=== PATIENT | female | born 1970 | race Caucasian/White ===

== ENCOUNTER 2022-03-25 09:43 | Emergency (ER) | payer BC, OTHER ==
[2022-03-25] MEDS ORDERED: CEFTRIAXONE 1000 MG/VIAL ONE (10:39)
[2022-03-25] MEDS ORDERED: dexAMETHasone 10 MG/ML VIAL ONE (10:39)
[2022-03-25] MEDS ORDERED: HYDROCODONE/CHLORPHEN 5 ML/OSYR ONE (10:39)
--- NOTE | 2022-03-25 12:40 | EDPHYS ---
Physician Documentation [facility] Name: Jennie Longo Age: 51 yrs Sex: Female : 1970 Arrival Date: 03/25/2022 Time: 09:44 Bed 18 Private MD: ED Physician Baldev Rich HPI: 03/25 10:15 This 51 yrs old Female presents to ER via Ambulatory with complaints of Ear Pain, Chest pm1 Congestion, Sore Throat, Swelling Of Tongue, Neck Swelling. 10:15 The patient presents with sore throat, and sinus pain. Onset: The symptoms/episode pm1 began/occurred 2 week(s) ago. Severity of symptoms: in the emergency department the symptoms are actually worse. Modifying factors: The symptoms are alleviated by nothing, Patient's oral intake status: good unaware of sick contact. Associated signs and symptoms: Pertinent positives: Swollen lymph nodes to neck, left ear pain, chest congestion and cough with postnasal drainage, sinus tenderness, Pertinent negatives fever. The patient has experienced similar episodes in the past, a few times. The patient has not recently seen a physician. Historical: - Allergies: 10:21 No Known Allergies; aa5 - Home Meds: 10:21 lisinopril 20 mg oral tab once daily [Active]; BuSpar 30 mg oral tab daily [Active]; aa5 10:43 Xanax 0.5 mg Oral tab as needed [Active]; rainey - PMHx: 10:21 Anxiety; Depression; Hypertension; aa5 - Immunization history:: Adult Immunizations unknown. - Social history:: Smoking status: Patient reports the use of cigarette tobacco products. ROS: 10:26 Constitutional: Negative for fever, chills, and weight loss. pm1 10:26 Cardiovascular: Negative for chest pain, palpitations, and edema. 10:26 Back: Negative for injury and pain, MS/Extremity: Negative for injury and deformity, Skin: Negative for injury, rash, and discoloration, Neuro: Negative for headache, weakness, numbness, tingling, and seizure. 10:26 ENT: Positive for ear pain, rhinorrhea, sinus congestion, sinus pain, sore throat. 10:26 Neck: Positive for swollen nodes, of the neck. 10:26 Respiratory: Positive for cough. 10:26 All other systems are negative. Exam: 10:26 Constitutional: This is a well developed, well nourished patient who is awake, alert, pm1 and in no acute distress. Head/Face: Normocephalic, atraumatic. 10:26 Back: No spinal tenderness. No costovertebral tenderness. Full range of motion. Skin: Warm, dry with normal turgor. Normal color with no rashes, no lesions, and no evidence of cellulitis. MS/ Extremity: Pulses equal, no cyanosis. Neurovascular intact. Full, normal range of motion. 10:26 ENT: External ear(s): are unremarkable, Ear canal(s): are normal, TM's: are normal, Mouth: no acute changes, Lips: normal, moist, Oral mucosa: normal, pink and intact, moist, Tongue: is normal, Negative for trismus, Posterior pharynx: Tonsils: bilaterally enlarged, with erythema, no exudate, no ulcerations, peritonsillar mass, is not appreciated, Voice: is normal. 10:26 Neck: Lymph nodes: lymphadenopathy is appreciated, anterior cervical nodes. 10:26 Cardiovascular: Exam negative for acute changes, Rate: normal, Rhythm: regular, Pulses: no pulse deficits are appreciated, Heart sounds: normal, normal S1and S2. 10:26 Respiratory: Exam negative for acute changes, respiratory distress, shortness of breath, Breath sounds: are clear throughout. 10:26 Abdomen/GI: Exam negative for acute changes, Inspection: abdomen appears normal, Palpation: abdomen is soft and non-tender, in all quadrants. 10:26 Neuro: Exam negative for acute changes, Orientation: is normal, Mentation: is normal, Motor: is normal, moves all fours. Vital Signs: 09:58 BP 120 / 73; Pulse 116; Resp 18 S; Temp 98.7(TE); Pulse Ox 96% on R/A; Weight 74.84 kg aa5 (R); Height 5 ft. 5 in. (165.10 cm) (R); 09:58 Body Mass Index 27.46 (74.84 kg, 165.10 cm) aa5 MDM: 10:07 Patient medically screened. pm1 12:37 Data reviewed: vital signs. Data interpreted: Pulse oximetry: on room air is 96 %. pm1 Interpretation: normal. Counseling: I had a detailed discussion with the patient and/or guardian regarding: the historical points, exam findings, and any diagnostic results supporting the discharge/admit diagnosis, the need for outpatient follow up, to return to the emergency department if symptoms worsen or persist or if there are any questions or concerns that arise at home. Administered Medications: 10:43 Drug: Rocephin (cefTRIAXone) 1 grams Route: IM; Site: right gluteus; rainey 10:44 Follow up: Response: No adverse reaction rainey 10:43 Drug: Decadron (dexamethasone) 10 mg Route: IM; Site: left gluteus; rainey 10:44 Follow up: Response: No adverse reaction rainey 10:43 Drug: Tussionex Pennkinetic ER (chlorpheniramine-hydrocodone) Suspension 5 ml Route: PO;rainey 10:43 Follow up: Response: No adverse reaction rainey Disposition: 16:08 Co-signature as Attending Physician, Baldev Rich MD I agree with the assessment and kdr plan of care. Disposition Summary: 03/25/22 12:40 Discharge Ordered Location: Home pm1 Problem: new pm1 Symptoms: have improved pm1 Condition: Stable pm1 Diagnosis - Otalgia, left ear pm1 - Acute pharyngitis, unspecified pm1 - Cough pm1 Followup: pm1 - With: Emergency Department - When: As needed - Reason: Worsening of condition Followup: pm1 - With: Private Physician - When: 2 - 3 days - Reason: Recheck today's complaints, Continuance of care, Re-evaluation by your physician Discharge Instructions: - Discharge Summary Sheet pm1 - Earache, Adult pm1 - Pharyngitis pm1 - Cough, Adult pm1 Forms: - Medication Reconciliation Form pm1 - Thank You Letter pm1 - Antibiotic Education pm1 - Prescription Opioid Use pm1 Prescriptions: - Augmentin 875-125 mg Oral Tablet - take 1 tablet by ORAL route every 12 hours for 10 days; 20 tablet; Refills: 0, pm1 Product Selection Permitted - Medrol (Pawan) 4 mg Oral Tablets, Dose Pack - take 1 tablet by ORAL route as directed - follow package instructions; 1 pm1 packet; Refills: 0, Product Selection Permitted - Guaifenesin AC 10-100 mg/5 mL Oral Liquid - take 10 milliliters by ORAL route every 4 hours As needed; 240 milliliter; pm1 Refills: 0, Product Selection Permitted Signatures: Baldev Rich MD MD kdr April Wilson, RN RN aa5 Andre Car, VIDEO NEWS EDITOR VIDEO NEWS EDITOR pm1 Sonia Gil RN RN rainey
--- NOTE | 2022-03-25 12:40 | ER ---
Nurse's Notes [facility] Name: Jennie Longo Age: 51 yrs Sex: Female : 1970 Arrival Date: 03/25/2022 Time: 09:44 Bed 18 Private MD: Diagnosis: Otalgia, left ear;Acute pharyngitis, unspecified;Cough Presentation: 03/25 09:58 Chief complaint: Patient states: left ear pain, cough, congestion, and sore throat x 1 aa5 week ago. pt reports swelling to tongue today, clear voice noted. 09:58 Coronavirus screen: At this time, the client does not indicate any symptoms associated aa5 with coronavirus-19. Ebola Screen: No symptoms or risks identified at this time. Initial Sepsis Screen: Does the patient meet any 2 criteria? No. Patient's initial sepsis screen is negative. Does the patient have a suspected source of infection? No. Patient's initial sepsis screen is negative. Risk Assessment: Do you want to hurt yourself or someone else? Patient reports no desire to harm self or others. Onset of symptoms was February 2022. 09:58 Acuity: RACHEL 3 aa5 09:58 Method Of Arrival: Ambulatory aa5 Triage Assessment: 10:42 General: Appears in no apparent distress. Behavior is calm, cooperative. rainey Historical: - Allergies: 10:21 No Known Allergies; aa5 - Home Meds: 10:21 lisinopril 20 mg oral tab once daily [Active]; BuSpar 30 mg oral tab daily [Active]; aa5 10:43 Xanax 0.5 mg Oral tab as needed [Active]; rainey - PMHx: 10:21 Anxiety; Depression; Hypertension; aa5 - Immunization history:: Adult Immunizations unknown. - Social history:: Smoking status: Patient reports the use of cigarette tobacco products. Screenin:41 Abuse screen: Denies threats or abuse. Denies injuries from another. Nutritional rainey screening: No deficits noted. Tuberculosis screening: No symptoms or risk factors identified. Fall Risk None identified. Assessment: 10:41 Pain: Complains of pain in sore throat. Respiratory: Airway is patent Breath sounds are rainey coarse bilaterally. EENT: Throat is reddened. EENT: Reports ear pain. Vital Signs: 09:58 BP 120 / 73; Pulse 116; Resp 18 S; Temp 98.7(TE); Pulse Ox 96% on R/A; Weight 74.84 kg aa5 (R); Height 5 ft. 5 in. (165.10 cm) (R); 09:58 Body Mass Index 27.46 (74.84 kg, 165.10 cm) aa ED Course: 09:44 Patient arrived in ED. as 09:58 Sonia Gil RN is Primary Nurse. rainey 09:58 Arm band placed on Patient placed in an exam room, on a stretcher. aa5 10:06 Andre Car NP is PHCP. pm1 10:06 Baldev Rich MD is Attending Physician. pm1 10:21 Triage completed. aa5 10:41 Patient has correct armband on for positive identification. Bed in low position. rainey 10:41 No provider procedures requiring assistance completed. rainey 12:51 Patient did not have IV access during this emergency room visit. rainey Administered Medications: 10:43 Drug: Rocephin (cefTRIAXone) 1 grams Route: IM; Site: right gluteus; rainey 10:44 Follow up: Response: No adverse reaction rainey 10:43 Drug: Decadron (dexamethasone) 10 mg Route: IM; Site: left gluteus; rainey 10:44 Follow up: Response: No adverse reaction rainey 10:43 Drug: Tussionex Pennkinetic ER (chlorpheniramine-hydrocodone) Suspension 5 ml Route: PO;rainey 10:43 Follow up: Response: No adverse reaction rainey Outcome: 12:40 Discharge ordered by . pm1 12:51 Discharged to home rainey 12:51 Condition: good 12:51 Discharge instructions given to patient, Prescriptions given X 3. 12:52 Patient left the ED. rainey Signatures: Claribel De La Paz Audri, RN RN aa Andre Car NP BRANCH OFFICER pm1 Sonia Gil RN RN rainey
[2022-03-25 13:41] VITALS: BP 120/73; TEMP 98.7; O2SAT 96
== END 2022-03-25 12:52 | disposition home or self-care (01) ==
LOC: ER 09:43
DX: H92.02 Otalgia, left ear (principal); J02.9 Acute pharyngitis, unspecified; R05.9 Cough, unspecified; I10 Essential (primary) hypertension; F41.8 Other specified anxiety disorders; Z72.0 Tobacco use
CPT/HCPCS: 96372; 99283; J1100